=== PATIENT | female | born 1955 | race Caucasian/White ===

== ENCOUNTER 2018-06-30 09:52 | Emergency (ER) | payer OTHER ==
[~2018-06-30] VITALS: Ht 157.5 cm; Wt 81.7 kg
[~2018-06-30 09:52] MED LIST: ACCUNEB SO1.25 MG/1; CLARITIN10 MG PO; COZAAR 25 MG TA25 M1 PO; LAMICTAL100 MG PO; LEVOTHYROXIN0.088 MG PO; MODAFINIL200 MG PO; NORCO 5-325 TA1 EACH PO; OMEPRAZOLE20 MG PO; SINGULAIR 10 MG10 M1 PO; SYMBICORT160 MCG/4. INH; TOPAMAX 100 MG100 MG PO; VENTOLIN HFA 1818 GM INH; ZANTAC 150MG T150 MG PO
[2018-06-30] MEDS ORDERED: CHLORTHALIDONE25 MG PO (10:06)
[2018-06-30] MEDS ORDERED: VENTOLIN HFA 1818 GM INH (10:11)
[2018-06-30] MEDS ORDERED: VITAMIN D3400 UNIT PO (10:13)
[2018-06-30] MEDS ORDERED: 24HR ALLERGY REL5 MG PO (10:13)
[2018-06-30] MEDS ORDERED: NORCO 5-325 TA1 EACH PO (10:42)
[2018-06-30 11:00] VITALS: BP 119/69
== END 2018-06-30 10:55 | disposition home or self-care (01) ==
LOC: ER 09:52
DX: S46.091A Other injury of muscle(s) and tendon(s) of the rotator cuff of right shoulder, initial encounter (principal); J45.909 Unspecified asthma, uncomplicated; G47.419 Narcolepsy without cataplexy; I10 Essential (primary) hypertension; E03.9 Hypothyroidism, unspecified; K21.9 Gastro-esophageal reflux disease without esophagitis; Z88.1 Allergy status to other antibiotic agents; Z88.2 Allergy status to sulfonamides; W00.0XXA Fall on same level due to ice and snow, initial encounter; Y93.89 Activity, other specified; Y92.89 Other specified places as the place of occurrence of the external cause; Y99.8 Other external cause status